=== PATIENT | female | born 1960 | race Caucasian/White ===

== ENCOUNTER 2023-03-23 06:50 | Day surgery (SDC) | payer OTHER ==
[~2023-03-23] VITALS: Ht 160 cm; Wt 54.9 kg
[2023-03-23] MEDS ORDERED: fentaNYL citrate 0.05 MG/ML VIAL ONE (07:55)
[2023-03-23] MEDS ORDERED: LIDOCAINE 2% 100 MG/5 ML UJET TP ONE (09:50)
[2023-03-23] MEDS ORDERED: fentaNYL citrate 0.05 MG/ML VIAL IVP ONE (09:50)
== END 2023-03-23 10:16 | disposition home or self-care (01) ==
LOC: MOR 06:50 → MMU 07:00 → MOR 10:16
PROVIDERS: ATTEND Internal Medicine Gastroenterology
DX: R19.5 Other fecal abnormalities (principal); K63.5 Polyp of colon; I10 Essential (primary) hypertension; E78.00 Pure hypercholesterolemia, unspecified; R10.31 Right lower quadrant pain; Z86.73 Personal history of transient ischemic attack (TIA), and cerebral infarction without residual deficits; Z80.0 Family history of malignant neoplasm of digestive organs; Z79.899 Other long term (current) drug therapy
CPT/HCPCS: 45385; J3010